=== PATIENT | male | born 1940 | race Caucasian/White ===

== ENCOUNTER → 2016-05-29 | Outpatient (CLI) | payer MEDICARE, OTHER ==
[~2016-05-29] MED LIST: AMARYL DPS4 MG PO; ASA CHILDREN'S81 MG PO; ASCORBIC ACID500 MG PO; CALTRATE-600 W600 MG PO; CENTRUM SILVER1 EAC1 PO; COUMADIN5 MG PO; COUMADIN7.5 MG PO; COZAAR100 MG PO; FLEXERIL DPS5 MG PO; FLOMAX DPS0.4 MG PO; GLUCOPHAGE-DPS500 MG PO; LIPITOR DPS40 MG PO; MIRALAX PACKET17 GM PO; NORVASC5 MG PO; OSTEO BI-FLEX1 EAC1 PO; OXY IR DPS5 MG PO; SENOKOT S1 TAB PO; SPIRONOLACTONE25 MG PO; TOPROL XL DPS50 MG PO; TYLENOL DPS325 MG PO; ULTRAM DPS50 MG PO; VITAMIN B COMP1 EACH PO
== END | disposition home or self-care (01) ==
LOC: EDT 09:42
DX: E11.9 Type 2 diabetes mellitus without complications (principal); Z79.4 Long term (current) use of insulin

== ENCOUNTER → 2016-06-28 | Outpatient (CLI) | payer MEDICARE, OTHER | END | disposition home or self-care (01) | LOC: NUE 11:17 | DX: E11.9 Type 2 diabetes mellitus without complications (principal); Z71.3 Dietary counseling and surveillance | CPT/HCPCS: 258 ==